=== PATIENT | female | born 1960 | race Hispanic/Latino ===

== ENCOUNTER 2019-08-12 10:18 | Inpatient (IN) | payer BC, OTHER, SELFPAY ==
[~2019-08-12] VITALS: Ht 160 cm; Wt 76.8 kg
[2019-08-12] MEDS ORDERED: DEXAMETHASONE SOD PHOSPHATE 10MG/ML 1ML VIAL ONE (14:24)
[2019-08-12] MEDS ORDERED: CEFTRIAXONE SODIUM 1 GM ONE (14:25)
[2019-08-12] MEDS ORDERED: AZITHROMYCIN 250 MG TABLET PO ONE (14:25)
[2019-08-12] MEDS ORDERED: LACTATED RINGERS 1000ML 1,000 ML IV SCH (16:00)
[2019-08-12] MEDS ORDERED: ERGOCALCIFEROL (VITAMIN D2) 50,000 UNIT CAPSULE PO ONE (16:00)
[2019-08-12] MEDS: AZITHROMYCIN 500MG+NS 250ML 250 ML IV SCH (16:00)
[2019-08-12] MEDS ORDERED: ERGOCALCIFEROL (VITAMIN D2) 50,000 UNIT CAPSULE ONE (17:37)
[2019-08-12] MEDS ORDERED: LACTATED RINGERS 1000ML 1,000 ML IV ONE (17:39)
[2019-08-12] MEDS: METHYLPREDNISOLONE SOD SUCC 40MG/ML 1ML IVP SCH (21:00)
[2019-08-12] MEDS ORDERED: METHYLPREDNISOLONE SOD SUCC 40MG/ML 1ML ONE (21:02)
[2019-08-13] MEDS ORDERED: LOPERAMIDE HCL 2 MG CAP PO ONE (07:23)
[2019-08-13] MEDS: ENOXAPARIN SODIUM 40 MG/0.4 ML SYRINGE SQ SCH (09:00)
[2019-08-13] MEDS: ASCORBIC ACID 500 MG TAB PO SCH (09:00)
[2019-08-13] MEDS: METHYLPREDNISOLONE SOD SUCC 40MG/ML 1ML IVP SCH ×3 (09:00→21:00)
[2019-08-13] MEDS: ZINC SULFATE 220 CAPSULE PO SCH (09:00)
[2019-08-13] MEDS ORDERED: AZITHROMYCIN 500MG+NS 250ML 250 ML IV ONE (10:37)
[2019-08-13] MEDS ORDERED: METHYLPREDNISOLONE SOD SUCC 40MG/ML 1ML ONE (10:38)
[2019-08-13] MEDS ORDERED: ZINC SULFATE 220 CAPSULE ONE (10:39)
[2019-08-13] MEDS ORDERED: ASCORBIC ACID 500 MG TAB ONE (10:39)
[2019-08-13] MEDS ORDERED: ENOXAPARIN SODIUM 60 MG/0.6 ML SQ ONE (10:40)
[2019-08-13] MEDS: AZITHROMYCIN 500MG+NS 250ML 250 ML IV SCH (15:10)
[2019-08-13] MEDS ORDERED: INSULIN HUMULIN R 100 UNIT/ML 3ML SQ SCH (16:30)
[2019-08-13] MEDS: INSULIN HUMULIN R 100 UNIT/ML 3ML SQ SCH ×2 (16:30→21:00)
--- NOTE | 2019-08-13 19:45 | NUR ---
CM NOTE SW attempted to contact patient and family by calling phone numbers on face sheet but there was no answer. CM to follow up.
[2019-08-13] MEDS ORDERED: METHYLPREDNISOLONE SOD SUCC 125MG/2ML VIAL ONE (22:39)
[2019-08-13] MEDS ORDERED: INSULIN HUMULIN R 100 UNIT/ML 3ML ONE (22:40)
[2019-08-14] MEDS ORDERED: METHYLPREDNISOLONE SOD SUCC 125MG/2ML VIAL ONE ×3 (06:20→20:31)
[2019-08-14] MEDS: INSULIN HUMULIN R 100 UNIT/ML 3ML SQ SCH ×4 (07:30→21:00)
[2019-08-14] MEDS: ZINC SULFATE 220 CAPSULE PO SCH (09:00)
[2019-08-14] MEDS: ENOXAPARIN SODIUM 40 MG/0.4 ML SYRINGE SQ SCH (09:00)
[2019-08-14] MEDS: ASCORBIC ACID 500 MG TAB PO SCH (09:00)
[2019-08-14] MEDS: METHYLPREDNISOLONE SOD SUCC 40MG/ML 1ML IVP SCH ×3 (09:00→21:00)
--- NOTE | 2019-08-14 09:00 | NUR ---
NO ANSWER TO NUMBERS IN CHART .. WILL FOLLOW UP
[2019-08-14] MEDS ORDERED: ASCORBIC ACID 500 MG TAB ONE (09:31)
[2019-08-14] MEDS ORDERED: ZINC SULFATE 220 CAPSULE ONE (09:31)
[2019-08-14] MEDS ORDERED: ENOXAPARIN SODIUM 40 MG/0.4 ML SYRINGE SQ ONE (09:31)
[2019-08-14] MEDS ORDERED: INSULIN HUMULIN R 100 UNIT/ML 3ML ONE ×4 (09:34→20:50)
[2019-08-14] MEDS: AZITHROMYCIN 500MG+NS 250ML 250 ML IV SCH (16:00)
[2019-08-14] MEDS ORDERED: METHYLPREDNISOLONE SOD SUCC 40MG/ML 1ML ONE (17:33)
[2019-08-14] MEDS ORDERED: ONDANSETRON HCL 4 MG/2 ML VIAL ONE (17:47)
[2019-08-15] MEDS ORDERED: AZITHROMYCIN 500MG+NS 250ML 250 ML IV ONE (00:39)
[2019-08-15 01:40] VITALS: BP 117/76; PULSE 72; RESP 18; TEMP 97.8
[2019-08-15 04:00] VITALS: BP 107/73; PULSE 70; RESP 18; TEMP 98.6
[2019-08-15] MEDS: ACETAMINOPHEN 325 MG TAB PO PRN ×2 (05:23→17:01)
[2019-08-15] MEDS: INSULIN HUMULIN R 100 UNIT/ML 3ML SQ SCH ×4 (05:24→21:39)
[2019-08-15 08:00] VITALS: BP 106/64; PULSE 73; RESP 22; TEMP 97.4
[2019-08-15] MEDS: METHYLPREDNISOLONE SOD SUCC 40MG/ML 1ML IVP SCH ×3 (08:36→21:46)
[2019-08-15] MEDS: ZINC SULFATE 220 CAPSULE PO SCH (08:36)
[2019-08-15] MEDS: ASCORBIC ACID 500 MG TAB PO SCH (08:36)
[2019-08-15] MEDS: ENOXAPARIN SODIUM 40 MG/0.4 ML SYRINGE SQ SCH (08:36)
[2019-08-15 11:00] VITALS: BP_SYST 120; BP_SYST 145; BP_DIAS 66; BP_DIAS 76; PULSE 69; PULSE 75; RESP 22; RESP 24; TEMP 97.6; TEMP 98.4
--- NOTE | 2019-08-15 11:05 | NUR ---
TRICE NOTE/IA UNABLE TO MEET WITH PATIENT FACE TO FACE DUE TO IN RESTRICTIVE PART OF HOSPITAL FOR COVID. DAUGHTER CALLED, PACHECO MONTES DE OCA. PER DAUGHTER, LIVES WITH DAUGHTER AND ADULT NIECE, INDEPENDENT WITH ADLS, NO DME IN USE AND FEELS SAFE FOR MOTHER TO COME HOME AFTER HOSPITAL DISCHARGE. Addendum: 08/16/19 at 1108 by RASHAD LEIJA RN CM Amended: Links added.
[2019-08-15] MEDS: INSULIN GLARGINE 100 UNITS/ML 10 ML VIAL SQ SCH ×2 (11:55→21:41)
[2019-08-15 15:00] VITALS: BP 113/74; PULSE 73; RESP 22; TEMP 98.2
[2019-08-15] MEDS: AZITHROMYCIN 500MG+NS 250ML 250 ML IV SCH (16:42)
--- NOTE | 2019-08-15 17:20 | NUR ---
SITTING UP ON SIDE OF BED EATING DINNER. CALL LIGHT WITHIN REACH, VERBALIZED ABILITY TO USE.
[2019-08-15] MEDS: ONDANSETRON HCL 4 MG/2 ML VIAL IVP PRN (18:12)
[2019-08-15 20:00] VITALS: BP 120/71; PULSE 73; RESP 19; TEMP 98.2
[2019-08-15] MEDS: ACETYLCYSTEINE 600 MG CAPSULE PO SCH (21:46)
[2019-08-16] VITALS (7 sets, daily range): BP systolic 104–124; BP diastolic 66–79; PULSE 63–81; RESP 18–22; TEMP 98–98.8
[2019-08-16] MEDS: INSULIN HUMULIN R 100 UNIT/ML 3ML SQ SCH ×4 (06:49→20:53)
[2019-08-16] MEDS: INSULIN GLARGINE 100 UNITS/ML 10 ML VIAL SQ SCH ×2 (06:49→20:58)
[2019-08-16] MEDS: ONDANSETRON HCL 4 MG/2 ML VIAL IVP PRN ×2 (07:10→17:39)
[2019-08-16] MEDS: ASCORBIC ACID 500 MG TAB PO SCH (08:00)
[2019-08-16] MEDS: ENOXAPARIN SODIUM 40 MG/0.4 ML SYRINGE SQ SCH (08:00)
[2019-08-16] MEDS: METHYLPREDNISOLONE SOD SUCC 40MG/ML 1ML IVP SCH ×3 (08:00→20:52)
[2019-08-16] MEDS: ZINC SULFATE 220 CAPSULE PO SCH (08:00)
[2019-08-16] MEDS: ACETAMINOPHEN 325 MG TAB PO PRN ×2 (08:01→17:39)
[2019-08-16] MEDS: ACETYLCYSTEINE 600 MG CAPSULE PO SCH ×2 (08:01→20:52)
--- NOTE | 2019-08-16 08:15 | NUR ---
ASSESSMENT ENCOUNTERED PT AMBULATING FROM BATHROOM, A&OX3, CALM COOPERATIVE AND DOES NOT APPEAR TO BE IN ANY DISTRESS NOR ANY NEURO DEFICITS PRESENT. PT DENIES PAIN, DIZZINESS OR LIGHTHEADEDNESS BUT DOES C/O DYSPNEA ON EXERTION, COUGH, NAUSEA AND INTERMITTENT HEADACHE, GAIT STEADY AND STRONG WITH STAND BY ASSIST AND O2 EXTENSION. PT IS ABLE TO TOLERATE FOODS, FLUIDS AND MEDICATION WITH NO THROAT CLEARING OR COUGH. CALL LIGHT WITHIN REACH.
[2019-08-16] MEDS: AZITHROMYCIN 500MG+NS 250ML 250 ML IV SCH (08:17)
--- NOTE | 2019-08-16 14:00 | NUR ---
ROOM AIR TRIAL PT PLACED ON ROOM AIR IN BED, O2 SATS 87% AT REST, PLACED BACK ON 2LNC AND O2SATS RETURN TO 91%. PT DID NOT APPEAR TO BE IN ANY DISTRESS. PT RESTING COMFORATBLY, CALL LIGHT WITHIN REACH.
[2019-08-17] VITALS (7 sets, daily range): BP systolic 97–116; BP diastolic 60–73; PULSE 60–80; RESP 17–24; TEMP 97.2–98.4
[2019-08-17] MEDS: ACETAMINOPHEN 325 MG TAB PO PRN ×2 (01:18→20:25)
[2019-08-17] MEDS: INSULIN HUMULIN R 100 UNIT/ML 3ML SQ SCH ×4 (06:21→20:26)
[2019-08-17] MEDS: ACETYLCYSTEINE 600 MG CAPSULE PO SCH ×2 (07:51→20:24)
[2019-08-17] MEDS: ENOXAPARIN SODIUM 40 MG/0.4 ML SYRINGE SQ SCH (07:52)
[2019-08-17] MEDS: ASCORBIC ACID 500 MG TAB PO SCH (07:52)
[2019-08-17] MEDS: ZINC SULFATE 220 CAPSULE PO SCH (07:52)
[2019-08-17] MEDS: ONDANSETRON HCL 4 MG/2 ML VIAL IVP PRN ×2 (07:52→13:37)
[2019-08-17] MEDS: METHYLPREDNISOLONE SOD SUCC 40MG/ML 1ML IVP SCH ×3 (07:52→20:24)
[2019-08-17] MEDS ORDERED: AZITHROMYCIN 250 MG TABLET PO SCH (09:00)
[2019-08-17] MEDS ORDERED: PANTOPRAZOLE SODIUM 40 MG TABLET.DR ONE (13:25)
[2019-08-17] MEDS: PANTOPRAZOLE SODIUM 40 MG TABLET.DR PO SCH ×2 (13:35→20:24)
[2019-08-17] MEDS: AZITHROMYCIN 250 MG TABLET PO SCH (13:36)
[2019-08-17] MEDS: INSULIN GLARGINE 100 UNITS/ML 10 ML VIAL SQ SCH (20:28)
[2019-08-18] VITALS (10 sets, daily range): BP systolic 99–109; BP diastolic 42–74; PULSE 55–70; RESP 17–24; TEMP 97.6–98.5
[2019-08-18] MEDS: INSULIN HUMULIN R 100 UNIT/ML 3ML SQ SCH ×4 (06:15→20:11)
[2019-08-18] MEDS: ENOXAPARIN SODIUM 40 MG/0.4 ML SYRINGE SQ SCH (08:15)
--- NOTE | 2019-08-18 08:15 | NUR ---
ASSESSMENT ENCOUNTERED PT ASLEEP BUT AROUSEABLE, A&OX3, CALM COOPERATIVE AND DOES NOT APPEAR TO BE IN ANY DISTRESS NOR ANY NEURO DEFICITS PRESENT. PT DENIES PAIN, DIZZINESS OR LIGHTHEADEDNESS BUT DOES C/O DYSPNEA ON EXERTION, COUGH, NAUSEA AND INTERMITTENT HEADACHE, GAIT STEADY AND STRONG WITH STAND BY ASSIST AND O2 EXTENSION. PT O2SATS 89% ON 2.5 LNC, PT REPOSITIONED AND O2 INCREASED TO 4LNC WITH O2SATS 91%WITH HUMIDIFIER, PT IS ABLE TO TOLERATE FOODS, FLUIDS AND MEDICATION WITH NO THROAT CLEARING OR COUGH. CALL LIGHT WITHIN REACH.
[2019-08-18] MEDS: ZINC SULFATE 220 CAPSULE PO SCH (08:16)
[2019-08-18] MEDS: ASCORBIC ACID 500 MG TAB PO SCH (08:16)
[2019-08-18] MEDS: INSULIN GLARGINE 100 UNITS/ML 10 ML VIAL SQ SCH ×2 (08:16→20:12)
[2019-08-18] MEDS: METHYLPREDNISOLONE SOD SUCC 40MG/ML 1ML IVP SCH ×3 (08:16→20:10)
[2019-08-18] MEDS: ACETYLCYSTEINE 600 MG CAPSULE PO SCH ×2 (08:16→20:11)
[2019-08-18] MEDS: PANTOPRAZOLE SODIUM 40 MG TABLET.DR PO SCH ×2 (08:17→20:10)
[2019-08-18] MEDS: AZITHROMYCIN 250 MG TABLET PO SCH (08:18)
[2019-08-18] MEDS: ACETAMINOPHEN 325 MG TAB PO PRN (12:00)
[2019-08-18] MEDS ORDERED: LACTOBACILLUS RHAMNOSUS GG 1 EACH CAP.SPRINK PO SCH (14:45)
[2019-08-18] MEDS ORDERED: LOPERAMIDE HCL 2 MG CAP PO PRN (14:45)
[2019-08-18] MEDS: METFORMIN HCL 500 MG TABLET PO SCH (17:00)
[2019-08-19] VITALS (8 sets, daily range): BP systolic 101–119; BP diastolic 57–72; PULSE 55–78; RESP 17–18; TEMP 97.6–98.4
[2019-08-19] MEDS: INSULIN HUMULIN R 100 UNIT/ML 3ML SQ SCH ×4 (06:37→20:31)
[2019-08-19] MEDS: INSULIN GLARGINE 100 UNITS/ML 10 ML VIAL SQ SCH ×2 (06:38→20:15)
[2019-08-19] MEDS: ACETYLCYSTEINE 600 MG CAPSULE PO SCH ×2 (07:32→20:13)
[2019-08-19] MEDS: ASCORBIC ACID 500 MG TAB PO SCH (07:32)
[2019-08-19] MEDS: PANTOPRAZOLE SODIUM 40 MG TABLET.DR PO SCH ×2 (07:32→20:13)
[2019-08-19] MEDS: METFORMIN HCL 500 MG TABLET PO SCH ×2 (07:32→14:14)
[2019-08-19] MEDS: ZINC SULFATE 220 CAPSULE PO SCH (07:33)
[2019-08-19] MEDS: ENOXAPARIN SODIUM 40 MG/0.4 ML SYRINGE SQ SCH (07:33)
[2019-08-19] MEDS: AZITHROMYCIN 250 MG TABLET PO SCH (07:33)
[2019-08-19] MEDS: METHYLPREDNISOLONE SOD SUCC 40MG/ML 1ML IVP SCH ×3 (07:33→20:23)
--- NOTE | 2019-08-19 08:00 | NUR ---
ASSESSMENT ENCOUNTERED PT A&OX3, CALM COOPERATIVE AND DOES NOT APPEAR TO BE IN ANY DISTRESS NOR ANY NEURO DEFICITS PRESENT. PT DENIES PAIN, DIZZINESS OR LIGHTHEADEDNESS. PT WEANED DOWN TO O2 2LNC, O2SATS 92%, PT IS AMBULATORY, GAIT STEADY AND STRONG WITH STAND BY ASSIST. CALL LIGHT WITHIN REACH.
[2019-08-19] MEDS: KETOROLAC TROMETHAMINE 15MG/ML IV PRN (14:14)
[2019-08-19] MEDS: ACETAMINOPHEN 325 MG TAB PO PRN (20:24)
[2019-08-20] VITALS (8 sets, daily range): BP systolic 103–139; BP diastolic 63–69; PULSE 64–82; RESP 17–20; TEMP 97.3–98.3
[2019-08-20] MEDS: KETOROLAC TROMETHAMINE 15MG/ML IV PRN ×3 (05:28→20:57)
[2019-08-20] MEDS: INSULIN GLARGINE 100 UNITS/ML 10 ML VIAL SQ SCH ×2 (07:30→20:23)
--- NOTE | 2019-08-20 07:30 | NUR ---
ASSESSMENT ENCOUNTERED PT A&OX3, CALM COOPERATIVE AND DOES NOT APPEAR TO BE IN ANY DISTRESS NOR ANY NEURO DEFICITS PRESENT. O2 SATS 95% ON 4LNC, WEANED DOWN TO 2LNC, O2SATS DOWN TO 91%, INFORMED PT WILL REMAIN THERE AND RE-EVALUATE AT LUNCHTIME. PT DENIES PAIN, SOB, NAUSEA. PT IS AMBULATORY, GAIT SLOW BUT STEADY WITH STAND BY ASSIST. CALL LIGHT WITHIN REACH.
[2019-08-20] MEDS: ZINC SULFATE 220 CAPSULE PO SCH (08:05)
[2019-08-20] MEDS: AZITHROMYCIN 250 MG TABLET PO SCH (08:05)
[2019-08-20] MEDS: PANTOPRAZOLE SODIUM 40 MG TABLET.DR PO SCH ×2 (08:05→20:21)
[2019-08-20] MEDS: ASCORBIC ACID 500 MG TAB PO SCH (08:05)
[2019-08-20] MEDS: ACETYLCYSTEINE 600 MG CAPSULE PO SCH ×2 (08:06→20:21)
[2019-08-20] MEDS: METHYLPREDNISOLONE SOD SUCC 40MG/ML 1ML IVP SCH ×3 (08:06→20:21)
[2019-08-20] MEDS: ENOXAPARIN SODIUM 40 MG/0.4 ML SYRINGE SQ SCH (08:06)
[2019-08-20] MEDS: METFORMIN HCL 500 MG TABLET PO SCH ×2 (08:06→18:16)
[2019-08-20] MEDS: INSULIN HUMULIN R 100 UNIT/ML 3ML SQ SCH ×3 (11:30→20:22)
--- NOTE | 2019-08-20 13:00 | NUR ---
O2 TO ROOM AIR O2SATS 91% ON ROOM AIR, INFORMED THAT SHE WILL BE RE-EVALUATED AT DINNER TIME. PT APPEARS COMFORTABLE, CALL LIGHT WITHIN REACH.
[2019-08-21 04:08] VITALS: BP 141/67; PULSE 66; RESP 18; TEMP 98.6
[2019-08-21] MEDS ORDERED: GLIPIZIDE 5 MG TABLET PO SCH (07:30)
[2019-08-21] MEDS: INSULIN HUMULIN R 100 UNIT/ML 3ML SQ SCH (07:30)
[2019-08-21 08:00] VITALS: BP 101/50; PULSE 69; RESP 18; TEMP 98.1
[2019-08-21] MEDS: METFORMIN HCL 500 MG TABLET PO SCH (08:34)
[2019-08-21] MEDS: PANTOPRAZOLE SODIUM 40 MG TABLET.DR PO SCH (08:34)
[2019-08-21] MEDS: ASCORBIC ACID 500 MG TAB PO SCH (08:34)
[2019-08-21] MEDS: ACETAMINOPHEN 325 MG TAB PO PRN ×2 (08:35→12:41)
[2019-08-21] MEDS: METHYLPREDNISOLONE SOD SUCC 40MG/ML 1ML IVP SCH (08:35)
[2019-08-21] MEDS: ZINC SULFATE 220 CAPSULE PO SCH (08:35)
[2019-08-21] MEDS: AZITHROMYCIN 250 MG TABLET PO SCH (08:36)
[2019-08-21] MEDS: INSULIN GLARGINE 100 UNITS/ML 10 ML VIAL SQ SCH (08:46)
--- NOTE | 2019-08-21 11:29 | NUR ---
RDSCREEN - LOS X 9 Pt admitted with Respiratory failure. Positive for COVID-19. Pt with GI Soft/Harrison Diet order in place. Good PO intake as per EMR. PO % not available. Attempt to call Pt, No answer. No report of GI distress. WBC 11.5, LDH 240, Alb 2.9. ZnSO4, Vitamin C in place. Obesity Class I. Recommend 30mL ProMod QD RD to continue to monitor. Please notify as additional nutrition concerns arise. Thank you.
[2019-08-21 12:00] VITALS: BP 89/64; PULSE 93; RESP 18; TEMP 98
--- NOTE | 2019-08-21 12:40 | NUR ---
Patient cleared by primary team to be DC home. DC information reviewed by MERCEDES Ventura.
--- NOTE | 2019-08-21 12:48 | NUR ---
CM NOTE/ELIQUIS PER DR. APARICIO, PATIENT TO [place] HOME TODAY WITH ELIQUIS PRESCRIPTION. PATIENT IN COVID UNITE, RESTRICTIVE PART OF HOSPITAL. ELIQUIS COUPON PRINTER TO NURSING POD PATIENT BELONGS TO. PER CARMON LEVY, ELIQUIS COUPON RECEIVED AND WILL GIVE TO PATIENT TO USE WITH ELIQUIS RX.
== END 2019-08-21 14:30 | disposition home or self-care (01) | DRG 177 ==
LOC: EDH 10:18 → EDHIP 10:19 → 4AH 08-15 01:00
PROVIDERS: ADMIT Hospitalist; ATTEND Hospitalist
DX: U07.1 COVID-19 (principal); J12.89 Other viral pneumonia; J96.01 Acute respiratory failure with hypoxia; E11.9 Type 2 diabetes mellitus without complications; I10 Essential (primary) hypertension; D72.819 Decreased white blood cell count, unspecified; E66.9 Obesity, unspecified; Z68.30 Body mass index [BMI] 30.0-30.9, adult; Z90.710 Acquired absence of both cervix and uterus; Z88.0 Allergy status to penicillin

== ENCOUNTER 2023-12-11 15:36 | Emergency (ER) | payer SELFPAY ==
[~2023-12-11] VITALS: Ht 157.5 cm; Wt 74.8 kg
[~2023-12-11 15:36] MED LIST: APIX2.5T PO; ATOR10TA69 PO; DEXA6TAB PO; ESOM40CA PO; GLIM2TAB30 PO; LISI10TA24 PO; METF-444 PO; SITA100T12 PO
--- NOTE | 2023-12-11 15:43 | ERN ---
ED Note History of Present Illness Stated Complaint: OTHER Chief Complaint: Other Problems Time Seen by MD: 15:37 Dictation: PATIENT IS A 63-YEAR-OLD FEMALE COMING IN TODAY WITH COMPLAINTS OF A TENDER LESION/MASS TO THE POSTERIOR CERVICAL NECK AREA SHE HAS HAD FOR SEVERAL WEEKS. NO FEVER NO CHILLS NO NAUSEA VOMITING. STATES SHE SAW HER PRIMARY CARE DOCTOR LAST WEEK WHO MADE HER REFERRAL TO DERMATOLOGY IN EARLY JANUARY. SHE STATES NOW IT IS GETTING WORSE. HE DID NOT PRESCRIBE ANYTHING FOR PAIN NOR ANTIBIOTICS. Allergies: Coded Allergies: Penicillins (Verified Allergy, Unknown, 08/12/19) Home Meds Active Scripts Dexamethasone (Dexamethasone) 6 Mg Tablet, 6 MG PO DAILY for 10 Days, #10 TAB Prov:LUCY APARICIO MD 08/21/19 Apixaban (Eliquis) 2.5 Mg Tablet, 2.5 MG PO BID for 14 Days, #28 TAB Prov:LUCY APARICIO MD 08/21/19 Metformin HCl (Metformin HCl) 500 Mg Tablet, 500 MG PO TID for 30 Days, #90 TAB Prov:LUCY APARICIO MD 08/21/19 Reported Medications Esomeprazole Magnesium (Nexium) 40 Mg Capsule.dr, 40 MG PO HS, CAP 08/15/19 Atorvastatin Calcium (Atorvastatin Calcium) 10 Mg Tablet, 10 MG PO HS, TAB 08/15/19 Glimepiride (Glimepiride) 2 Mg Tablet, 2 MG PO BID, TAB 08/15/19 Sitagliptin Phosphate (Januvia) 100 Mg Tablet, 100 MG PO HS, TAB 08/15/19 Lisinopril (Lisinopril) 10 Mg Tablet, 10 MG PO DAILY, TAB 08/15/19 Past Medical History Past Medical History: Diabetes-Type II, Hypertension Surgical History: Hysterectomy History: Not Applicable RN Note Reviewed/Agreed w/PFSH: Yes Review of System Dictation CONSTITUTIONAL: NEGATIVE EXCEPT FOR HPI HEAD/FACE: NEGATIVE EXCEPT FOR HPI EENT: NEGATIVE EXCEPT FOR HPI RESPIRATORY: NEGATIVE EXCEPT FOR HPI GASTROINTESTINAL/ABDOMINAL: NEGATIVE EXCEPT FOR HPI GENITOURINARY: NEGATIVE EXCEPT FOR HPI MUSCULOSKELETAL: NEGATIVE EXCEPT FOR HPI INTEGUMENTARY: NEGATIVE EXCEPT FOR HPI POSTERIOR CERVICAL NECK LESION/MASS NEUROLOGICAL/PSYCH: NEGATIVE EXCEPT FOR HPI HEMATOLOGIC/LYMPHATIC: NEGATIVE EXCEPT FOR HPI ALL SYSTEMS NEGATIVE, EXCEPT NOTED ABOVE. 13 POINT REVIEW OF SYSTEMS ASSESSED AND ALL NEGATIVE EXCEPT FOR ABOVE. Initial Vital Sign VS Vital Signs Date Time Temp Pulse Resp B/P (MAP) Pulse Ox O2 Delivery O2 Flow Rate FiO2 12/11/23 15:39 99.5 89 14 146/89 98 Room Air 0 Physical Exam Dictation VITAL SIGNS REVIEWED GENERAL APPEARANCE: ALERT, ORIENTED X 3, NO ACUTE DISTRESS, WELL DEVELOPED, NOURISHED. HEAD AND FACE: NON-TRAUMATIC. EYES: PERRL, PINK CONJUNCTIVAS, EYELID NO TRAUMA, ANTERIOR CHAMBER WITH ARCUS SENILIS. EARS: PINNAS INTACT AND NO SIGNS OF TRAUMA OR ERYTHEMA EAR CANALS CLEAR AND NO DISCHARGE TM NO ERYTHEMA NOSE: NO DISCHARGE, NO BLEEDING. OROPHARYNX: MOUTH NORMAL, TONGUE PINK, PHARYNX CLEAR,NO ERYTHEMA, TONSILS NO EXUDATES, NO ABSCESSES NOTED, MUCOUS MEMBRANE MOIST NECK: SUPPLE, NON-TENDER, NO THYROMEGALY, NO MASSES, NO JVD, NO BRUITS BREAST:DEFERRED CHEST:NO TENDERNESS, NO CREPITUS, NO PARADOXICAL MOVEMENT, NO RETRACTIONS LUNGS:CLEAR, WELL-VENTILATED, SYMMETRIC, NO RALES, NO WHEEZING, NO RHONCHI, NO STRIDOR, GOOD BREATH SOUNDS BILATERALLY HEART: REGULAR RATE, REGULAR RHYTHM, NO MURMUR, NO GALLOPS VASCULAR: NO PERIPHERAL EDEMA, ABDOMEN: SOFT, POSITIVE BOWEL SOUNDS, NONDISTENDED, NO GUARDING, NONTENDER, NO REBOUND, NO MASSES NO HEPATOMEGALY, NO SPLENOMEGALY, NO MOISE'S SIGN, NO HERNIAS. RECTAL: DEFERRED GENITAL: DEFERRED NEUROLOGICAL: NORMAL SPEECH, MOTOR FUNCTION INTACT, SENSORY FUNCTION INTACT MUSCULOSKELETAL: NECK NONTENDER, FULL RANGE OF MOTION, BACK NONTENDER, FULL RANGE OF MOTION, EXTREMITIES: NONTENDER, FULL RANGE OF MOTION SKIN: COLOR PINK, DRY, POSTERIOR CERVICAL LESION/MASS APPROXIMATELY 3 X 2 CM FIRM, NO FLUCTUANCE OR INDURATION LYMPHATIC: DEFERRED Results (Laboratory/Radiology) Laboratory/Radiology Laboratory Tests Test 12/11/23 15:46 White Blood Count 5.4 K/uL (4.8-10.8) Red Blood Count 4.76 MIL/uL (4.00-5.50) Hemoglobin 12.5 g/dL (12.0-16.0) Hematocrit 37.7 % (36-48) Mean Corpuscular Volume 79.2 fL (79-99) Mean Corpuscular Hemoglobin 26.3 pg (27.0-33.0) L Mean Corpuscular Hemoglobin Concent 33.2 g/dL (32.0-36.0) Red Cell Distribution Width 14.1 % (11.0-15.5) Platelet Count 146 K/uL (130-400) Mean Platelet Volume 12.1 fL (7.5-10.5) H Immature Granulocyte % (Auto) 0.2 % (0-1) Neutrophils (%) (Auto) 50.5 % (40.0-77.0) Lymphocytes (%) (Auto) 36.4 % (21.0-51.0) Monocytes (%) (Auto) 8.8 % (3.0-13.0) Eosinophils (%) (Auto) 3.2 % (0.0-8.0) Basophils (%) (Auto) 0.9 % (0.0-5.0) Neutrophils # (Auto) 2.7 K/uL (1.8-7.7) Lymphocytes # (Auto) 2.0 K/uL (1.0-4.8) Monocytes # (Auto) 0.5 K/uL (0.1-1.0) Eosinophils # (Auto) 0.17 K/uL (0.00-0.70) Basophils # (Auto) 0.05 K/uL (0.00-0.20) Absolute Immature Granulocyte (auto 0.01 K/uL (0-1) Nucleated Red Blood Cells 0.0 % (0.0-0.19) Sodium Level 140 mmol/L (136-145) Potassium Level 3.8 mmol/L (3.5-5.1) Chloride Level 105 mmol/L (101-111) Carbon Dioxide Level 30 mmol/L (21-32) Blood Urea Nitrogen 12 mg/dL (7-18) Creatinine 0.8 mg/dL (0.5-1.0) Glomerular Filtration Rate Calc 83 mL/min (>90) Random Glucose 257 mg/dL (70-105) H Total Calcium 9.8 mg/dL (8.5-10.1) ULTRASOUND SOFT TISSUE NECK INDICATION: Posterior neck lesion COMPARISON: None TECHNIQUE: Multiplanar sonographic images of the posterior neck were obtained earlier in real-time using grayscale and color Doppler technique, and subsequently made available for review. FINDINGS/IMPRESSION: 16 x 12 x 15 mm complex lesion with heterogeneous echogenicity is accompanied by nominal peripheral vascularity, but no surrounding edema, and sebaceous or epidermal inclusion cyst is favored over a foreign body granuloma or abscess. Labs Reviewed?: Yes ED Course ED Course Orders Procedure Category Date Status Time Us Soft Tissue Neck US 12/11/23 Resulted 15:40 Cbc With Differential LAB 12/11/23 Complete 15:40 Basic Metabolic Panel LAB 12/11/23 Complete 15:40 Lidocaine Hcl 1% 20ml PHA 12/11/23 In Process Vial (Lidocaine Hc 17:00 Aerobic Culture ROXANA 12/11/23 Logged 16:58 Lidocaine Hcl 1% 20ml PHA 12/11/23 Complete Vial (Lidocaine Hc 17:03 Current Medications Medications (Trade) Dose Ordered Sig/Jamari Route PRN Reason Start Time Stop Time Status Last Admin Dose Admin Lidocaine HCl (Lidocaine HCl 1% 20ml Vial) 10 ml ONCE INJ 12/11/23 17:00 12/11/23 22:30 Lidocaine HCl (Lidocaine HCl 1% 20ml Vial) 20 ml STK-MED ONCE .ROUTE 12/11/23 17:03 12/11/23 17:03 DC Vital Signs Date Time Temp Pulse Resp B/P (MAP) Pulse Ox O2 Delivery O2 Flow Rate FiO2 12/11/23 15:39 99.5 89 14 146/89 98 Room Air 0 SEVENTEEN 16, PATIENT TOLERATED WELL WE WILL START CLINDAMYCIN AND GIVE TYLENOL NO. 3 FOR FOR PAIN PATIENT MADE AWARE TO KEEP HER APPOINTMENT WITH DERMATOLOGY AND THAT WAS ARRANGED BY HER DOCTOR. TAKE ANTIBIOTICS DIRECTED UNTIL GONE. Medical Decision Making MDM MEDICAL DISCHARGE MAKING BASED ON LABS AND ULTRASOUND OF LESION TO POSTERIOR NECK PERFORMED I&D UNABLE TO REMOVE PORTION OF THE GRANULOMA. 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 Procedure Procedure Dictation: [id number] PROCEDURE EXPLAINED TO PATIENT SHE AGREED TO PROCEED PATIENT HAS LARGE GRANULOMA TO THE POSTERIOR NECK AREA PREPPED WITH BETADINE SCRUBBED X3 USED5 ML LIDOCAINE 1% PLAIN FOR LOCAL ANESTHESIA 2 CM INCISION MADE WITH 11. SCALPEL REMOVED APPROXIMATELY 4 ML OF VERY SOLID GRANULOMA COR UNABLE TO REMOVE GRANULOMA COMPLETELY NO ACTIVE BLEEDING AND PATIENT TOLERATED WELL NO PACKING REQUIRED DX & DISP Disposition: Discharge Departure Impression: Primary Impression: Granuloma due to infection Additional Impression: Uncontrolled diabetes mellitus Condition: Stable Scripts Ibuprofen (Ibuprofen 800 mg Tab) 800 Mg Tab 800 MG PO Q8H PRN for fever or pain, #30 TAB 0 Refills Prov: RHEINER,CODY P DERRICK BOAT CAPTAIN 12/11/23 Clindamycin HCl (Clindamycin HCl) 300 Mg Capsule 1 CAP PO QID for 10 Days, #40 CAP 0 Refills Prov: CODY POTTER NP 12/11/23 Additional Instructions: FOLLOW-UP WITH PRIMARY CARE PROVIDER IN 1 TO 2 DAYS. TAKE MEDICATIONS DIRECTED HERE IN THE EMERGENCY ROOM. OKAY TO CONTINUE HOME MEDICATIONS UNLESS OTHERWISE DISCUSSED DURING YOUR VISIT IN THE EMERGENCY ROOM TODAY. RETURN TO YOUR NEAREST EMERGENCY ROOM IF SYMPTOMS WORSEN OR IF THERE IS NO IMPROVEMENT. CALL 911 IF YOU NEED IMMEDIATE ASSISTANCE. TAKE TYLENOL OR MOTRIN [id number] NEEDED AND IF NO CONTRAINDICATIONS ARE PRESENT. INCREASE ORAL HYDRATION. A WOUND CULTURE OR URINE CULTURE WAS ORDERED HERE IN THE EMERGENCY ROOM DEPARTMENT PLEASE FOLLOW-UP WITH PRIMARY CARE PROVIDER AND ADVISE THEM TO GET REPEAT PORTS FROM OUR FACILITY. IF YOU HAD ANY NICO WRAP/SPLINTS THAT WERE APPLIED HERE, PLEASE DO NOT REMOVE THEM UNTIL YOU SEE YOUR PRIMARY CARE OR SPECIALTY. TAKE ANTIBIOTIC DIRECTED UNTIL GONE. KEEP INCISION AND DRAINAGE SITE COVERED. SEE YOUR PRIMARY CARE DOCTOR ON WEDNESDAY FOR FOLLOW UP AND TREATMENT. ALSO KEEP YOUR APPOINTMENT WITH YOUR DERMATOLOGY Referrals: SELF,REFERRAL (PCP) Time of Disposition: 17:19 I have reviewed the case, and I agree with, Diagnosis and Plan CODY POTTER NP Dec 11, 2023 15:43
[2023-12-11 15:52] LABS: BASOPHILS # (AUTO) 0.05 K/uL (0.00-0.20); BASOPHILS % (AUTO) 0.9 % (0.0-5.0); EOSINOPHILS # (AUTO) 0.17 K/uL (0.00-0.70); EOSINOPHILS % (AUTO) 3.2 % (0.0-8.0); HEMATOCRIT 37.7 % (36-48); IMMATURE GRANULOCYTE ABSOLUTE 0.01 K/uL (0-1); LYMPHOCYTES % (AUTO) 36.4 % (21.0-51.0); MEAN CORPUSCULAR HEMOGLOBIN 26.3 pg (27.0-33.0); MEAN CORPUSCULAR HGB CONC 33.2 g/dL (32.0-36.0); MEAN CORPUSCULAR VOLUME 79.2 fL (79-99); MONOCYTES # (AUTO) 0.5 K/uL (0.1-1.0); MONOCYTES % (AUTO) 8.8 % (3.0-13.0); NEUTROPHILS # (AUTO) 2.7 K/uL (1.8-7.7); NEUTROPHILS % (AUTO) 50.5 % (40.0-77.0); PLATELET COUNT (AUTO) 146 K/uL (130-400); RED BLOOD CELL COUNT(AUTO) 4.76 MIL/uL (4.00-5.50); RED CELL DISTRIBUTION WIDTH 14.1 % (11.0-15.5); WHITE BLOOD COUNT (AUTO) 5.4 K/uL (4.8-10.8)
[2023-12-11 16:02] LABS: CREATININE 0.8 mg/dL (0.5-1.0); POTASSIUM 3.8 mmol/L (3.5-5.1)
--- NOTE | 2023-12-11 16:58 | HMCIMG ---
ULTRASOUND SOFT TISSUE NECK INDICATION: Posterior neck lesion COMPARISON: None TECHNIQUE: Multiplanar sonographic images of the posterior neck were obtained earlier in real-time using grayscale and color Doppler technique, and subsequently made available for review. FINDINGS/IMPRESSION: 16 x 12 x 15 mm complex lesion with heterogeneous echogenicity is accompanied by nominal peripheral vascularity, but no surrounding edema, and sebaceous or epidermal inclusion cyst is favored over a foreign body granuloma or abscess.
[2023-12-11] MEDS: LIDOCAINE HCL 1% 20 ML VIAL ONE (17:20)
[2023-12-11] MEDS: LIDOCAINE HCL 1% 20 ML VIAL INJ SCH (17:20)
[2023-12-11] MEDS ORDERED: CLIN-141 PO (17:23)
[2023-12-11] MEDS ORDERED: IBUP-2077 PO (17:23)
[2023-12-11] MEDS: acetaMINOPHEN WITH coDEINE 1 TAB TAB PO SCH (17:41)
[2023-12-11] MEDS: CLINDAMYCIN 150 MG CAP PO SCH (17:41)
[2023-12-11 18:00] VITALS: BP 131/74; PULSE 76; RESP 18; TEMP 98.4; O2SAT 98
== END 2023-12-11 18:09 | disposition home or self-care (01) ==
LOC: EDH 15:36
DX: L92.8 Other granulomatous disorders of the skin and subcutaneous tissue (principal); I10 Essential (primary) hypertension; E11.65 Type 2 diabetes mellitus with hyperglycemia; Z79.01 Long term (current) use of anticoagulants; Z79.52 Long term (current) use of systemic steroids; Z79.84 Long term (current) use of oral hypoglycemic drugs; Z79.899 Other long term (current) drug therapy; Z88.0 Allergy status to penicillin; Z90.710 Acquired absence of both cervix and uterus
CPT/HCPCS: 10060; 11423; 36415; 76536; 80048; 85025

== ENCOUNTER 2024-03-18 13:59 | Emergency (ER) | payer BC ==
[~2024-03-18] VITALS: Ht 157.5 cm; Wt 74.8 kg
[~2024-03-18 13:59] MED LIST changes: +CLIN-141 PO; +IBUP-2077 PO
--- NOTE | 2024-03-18 14:24 | ERN ---
ED Note History of Present Illness Stated Complaint: CP Chief Complaint: Chest Pain Time Seen by MD: 14:06 Dictation: 60-year-old female with a past medical history of diabetes who presented to emergency department complaining of chest pain, initially it was in the left gayathri e it has spread to the right side and to her back as well.The pain started suddenly was sharp in nature, states that it started 40 minutes before arrival to the emergency department. Patient states that she was laying down when the pain started. She denies heart medical condition. Allergies: Coded Allergies: Penicillins (Verified Allergy, Unknown, 08/12/19) Home Meds Active Scripts Ibuprofen (Ibuprofen 800 mg Tab) 800 Mg Tab, 800 MG PO Q8H PRN for fever or pain, #30 TAB 0 Refills Prov:CODY POTTER NP 12/11/23 Clindamycin HCl (Clindamycin HCl) 300 Mg Capsule, 1 CAP PO QID for 10 Days, #40 CAP 0 Refills Prov:CODY POTTER NP 12/11/23 Dexamethasone (Dexamethasone) 6 Mg Tablet, 6 MG PO DAILY for 10 Days, #10 TAB Prov:LUCY APARICIO MD 08/21/19 Apixaban (Eliquis) 2.5 Mg Tablet, 2.5 MG PO BID for 14 Days, #28 TAB Prov:LUCY APARICIO MD 08/21/19 Metformin HCl (Metformin HCl) 500 Mg Tablet, 500 MG PO TID for 30 Days, #90 TAB Prov:LUCY APARICIO MD 08/21/19 Reported Medications Esomeprazole Magnesium (Nexium) 40 Mg Capsule.dr, 40 MG PO HS, CAP 08/15/19 Atorvastatin Calcium (Atorvastatin Calcium) 10 Mg Tablet, 10 MG PO HS, TAB 08/15/19 Glimepiride (Glimepiride) 2 Mg Tablet, 2 MG PO BID, TAB 08/15/19 Sitagliptin Phosphate (Januvia) 100 Mg Tablet, 100 MG PO HS, TAB 08/15/19 Lisinopril (Lisinopril) 10 Mg Tablet, 10 MG PO DAILY, TAB 08/15/19 Past Medical History Past Medical History: Diabetes-Type II, Hypertension, Other Additional Past Medical Hx: LIVER ISSUES Surgical History: Hysterectomy History: Not Applicable Review of System Dictation NEGATIVE EXCEPT PER HPI Constitutional: Negative for fever,chills, and weight loss Eyes: Negative for injury, pain,redness, and discharge ENT: Negative for injury,pain or swelling Cardiovascular: Chest pain Respiratory: Negative for shortness of breath, cough, and wheezing, Abdomen/GI: Negative for abdominal pain, nausea, vomiting, diarrhea, and constipation Back: Negative for injury and pain : Negative for injury, bleeding and discharge MS/Extremity: Negative for injury and deformity Skin: Negative for rash, and discoloration Neuro: Negative for headache, weakness, numbness, tingling, and seizure Psych: Negative for suicide ideation, homicidal ideation, and hallucinations Initial Vital Sign VS Vital Signs Date Time Temp Pulse Resp B/P (MAP) Pulse Ox O2 Delivery O2 Flow Rate FiO2 03/18/24 14:03 99.1 81 18 127/70 97 Room Air 0 03/18/24 14:06 21 Physical Exam Dictation General: awake, alert, NAD Head/Face: Normocephalic, atraumatic Eyes: PERRL, EOMI, vision at baseline ENT: oral cavity clear, TMs clear, no signs of infection Neck: Trachea midline, supple, no nuchal rigidity Cardiovascular: RRR, normal S1/S2, No MRGs, no JVD Respiratory: CTAB, no respiratory distress, No rales or wheezes Abdomen: Soft , no tender Skin: Warm, dry, normal turgor, no rash MS/Extremity: Pulses equal, no cyanosis, neurovascular intact, FROM Neuro: COAx4, GCS 15, strength 5/5, CN 2-12 intact, normal cerebellar exam, normal gait, Psych: Normal behavior, mood, and affect normal Results (Laboratory/Radiology) Laboratory/Radiology Laboratory Tests Test 03/18/24 14:18 03/18/24 14:51 White Blood Count 4.4 K/uL (4.8-10.8) L Red Blood Count 4.78 MIL/uL (4.00-5.50) Hemoglobin 11.7 g/dL (12.0-16.0) L Hematocrit 36.3 % (36-48) Mean Corpuscular Volume 75.9 fL (79-99) L Mean Corpuscular Hemoglobin 24.5 pg (27.0-33.0) L Mean Corpuscular Hemoglobin Concent 32.2 g/dL (32.0-36.0) Red Cell Distribution Width 14.4 % (11.0-15.5) Platelet Count 122 K/uL (130-400) L Mean Platelet Volume 11.8 fL (7.5-10.5) H Immature Granulocyte % (Auto) 0.2 % (0-1) Neutrophils (%) (Auto) 39.9 % (40.0-77.0) L Lymphocytes (%) (Auto) 43.5 % (21.0-51.0) Monocytes (%) (Auto) 12.1 % (3.0-13.0) Eosinophils (%) (Auto) 3.4 % (0.0-8.0) Basophils (%) (Auto) 0.9 % (0.0-5.0) Neutrophils # (Auto) 1.8 K/uL (1.8-7.7) Lymphocytes # (Auto) 1.9 K/uL (1.0-4.8) Monocytes # (Auto) 0.5 K/uL (0.1-1.0) Eosinophils # (Auto) 0.15 K/uL (0.00-0.70) Basophils # (Auto) 0.04 K/uL (0.00-0.20) Absolute Immature Granulocyte (auto 0.01 K/uL (0-1) Nucleated Red Blood Cells 0.0 % (0.0-0.19) Red Blood Cell Morphology See comments Sodium Level 143 mmol/L (136-145) Potassium Level 4.0 mmol/L (3.5-5.1) Chloride Level 108 mmol/L (101-111) Carbon Dioxide Level 27 mmol/L (21-32) Blood Urea Nitrogen 12 mg/dL (7-18) Creatinine 0.5 mg/dL (0.5-1.0) Glomerular Filtration Rate Calc 105 mL/min (>90) Random Glucose 259 mg/dL (70-105) H Total Calcium 9.3 mg/dL (8.5-10.1) B-Type Natriuretic Peptide 61 pg/mL (0-100) Troponin I < 0.05 ng/mL (0.00-0.05) ED Course ED Course Orders Procedure Category Date Status Time 12 Lead Ekg Tracing- EKG 03/18/24 Logged Technical 14:03 Chest 1vw RAD 03/18/24 Resulted 14:16 Cbc With Differential LAB 03/18/24 Complete 14:16 Morphine 4mg Syg PHA 03/18/24 Complete (Morphine 4mg Syg) 14:30 Aspirin 325mg Tab PHA 03/18/24 Complete (Aspirin 325mg Tab) 14:30 Troponin Poc Order LAB 03/18/24 Complete Only 14:16 Bedside Troponin-I LAB.ER 03/18/24 In Process (Poc) 14:16 Basic Metabolic Panel LAB 03/18/24 Complete 14:16 B-Type Natriuretic LAB 03/18/24 Complete Peptide 14:18 Current Medications Medications (Trade) Dose Ordered Sig/Jamari Route PRN Reason Start Time Stop Time Status Last Admin Dose Admin Aspirin (Aspirin 325mg Tab) 325 mg ONCE ONCE PO 03/18/24 14:30 03/18/24 14:31 DC 03/18/24 14:42 Morphine Sulfate (morPHINE 4MG SYG) 2 mg ONCE ONCE IVP 03/18/24 14:30 03/18/24 14:31 DC 03/18/24 14:43 Vital Signs Date Time Temp Pulse Resp B/P (MAP) Pulse Ox O2 Delivery O2 Flow Rate FiO2 03/18/24 16:00 98.2 72 15 111/59 97 Room Air* 0 21 03/18/24 14:06 99.1 81 18 127/70 97 Room Air* 0 21 03/18/24 14:03 99.1 81 18 127/70 97 Room Air 0 Medical Decision Making MDM 60-year-old female who presented to the emergency department complaining of sharp left chest pain with radiation to the right and upper back. Patient had does have history of diabetes. Chest pain Muscle strain. Chest pain workup including CBC,BMP, troponin, chest x-ray. EKG. EKG reported sinus rhythm, heart rate 81, UT 139, QT 401 Cardiac workup was negative, chest x-ray is normal. Patient reports sharp pain , exacerbated with movement. Patient will be discharged home with recommended to follow up with her primary care physician in the next 24 hours. DX & DISP Disposition: Discharge Departure Impression: Primary Impression: Chest pain Additional Impression: Muscle strain Condition: Stable Referrals: NONE (PCP) Time of Disposition: 16:47 SAAD BRADY MD Mar 18, 2024 14:24
[2024-03-18 14:36] LABS: BASOPHILS # (AUTO) 0.04 K/uL (0.00-0.20); BASOPHILS % (AUTO) 0.9 % (0.0-5.0); EOSINOPHILS # (AUTO) 0.15 K/uL (0.00-0.70); EOSINOPHILS % (AUTO) 3.4 % (0.0-8.0); HEMATOCRIT 36.3 % (36-48); IMMATURE GRANULOCYTE ABSOLUTE 0.01 K/uL (0-1); LYMPHOCYTES # (AUTO) 1.9 K/uL (1.0-4.8); LYMPHOCYTES % (AUTO) 43.5 % (21.0-51.0); MEAN CORPUSCULAR HEMOGLOBIN 24.5 pg (27.0-33.0); MEAN CORPUSCULAR HGB CONC 32.2 g/dL (32.0-36.0); MEAN CORPUSCULAR VOLUME 75.9 fL (79-99); MONOCYTES # (AUTO) 0.5 K/uL (0.1-1.0); MONOCYTES % (AUTO) 12.1 % (3.0-13.0); NEUTROPHILS # (AUTO) 1.8 K/uL (1.8-7.7); NEUTROPHILS % (AUTO) 39.9 % (40.0-77.0); PLATELET COUNT (AUTO) 122 K/uL (130-400); RED BLOOD CELL COUNT(AUTO) 4.78 MIL/uL (4.00-5.50); RED CELL DISTRIBUTION WIDTH 14.4 % (11.0-15.5); WHITE BLOOD COUNT (AUTO) 4.4 K/uL (4.8-10.8)
[2024-03-18 14:40] LABS: CREATININE 0.5 mg/dL (0.5-1.0)
[2024-03-18] MEDS: ASPIRIN 325MG TAB PO ONE (14:42)
[2024-03-18] MEDS: morPHINE 4 MG SYG IVP ONE (14:43)
--- NOTE | 2024-03-18 16:18 | HMCIMG ---
PORTABLE CHEST RADIOGRAPH INDICATION: chest pain COMPARISON: 08/12/2019 FINDINGS: tar distillation supervisor leads overlie the field of view. Heart size is normal. The pulmonary vascularity and jonah appear normal. No abnormal pulmonary parenchymal opacity or consolidation identified. No significant pleural effusion noted. No pneumothorax detected. IMPRESSION: No radiographic evidence for any acute cardiopulmonary process.
--- NOTE | 2024-03-18 17:48 | EKG ---
[facility] Test Date: 2024-03-18 Test Time: 14:01:07 Pat Name: ANGELI MONTES DE OCA Department: ED Room: Gender: F Rotary Surface Grinder: [id number] : [id number] Requested By: SAAD REAVES Order Number: [id number] Reading MD: Brad Lugo Measurements Intervals [place] Rate: 81 P: 41 WA: 139 QRS: -39 QRSD: 98 T: 27 QT: 401 QTc: 466 Interpretive Statements Sinus rhythm Left axis deviation Compared to ECG 08/12/2019 13:02:12 Left-axis deviation now present Electronically Signed On 03-19-2024 09:56:37 PROFESSOR OF PHILOSOPHY by Brad Lugo Please click the below link to view image of tracing.
[2024-03-18 18:10] VITALS: BP 124/62; PULSE 78; RESP 18; TEMP 97.8; O2SAT 98
== END 2024-03-18 18:22 | disposition home or self-care (01) ==
LOC: EDH 13:59
DX: S29.011A Strain of muscle and tendon of front wall of thorax, initial encounter (principal); R07.89 Other chest pain; E11.9 Type 2 diabetes mellitus without complications; I10 Essential (primary) hypertension; Z79.01 Long term (current) use of anticoagulants; Z79.52 Long term (current) use of systemic steroids; Z79.84 Long term (current) use of oral hypoglycemic drugs; Z79.899 Other long term (current) drug therapy; Z88.0 Allergy status to penicillin; Z90.710 Acquired absence of both cervix and uterus; X58.XXXA Exposure to other specified factors, initial encounter; Y93.89 Activity, other specified; Y92.89 Other specified places as the place of occurrence of the external cause; Y99.8 Other external cause status
CPT/HCPCS: 99284; 96374; 71045; 84484; 80048; 83880; 85025; 36415; 93005; J2270